=== PATIENT | female | born 1930 | race Caucasian/White ===

== ENCOUNTER 2016-02-09 22:26 | Inpatient (IN) | payer MEDICARE, BC ==
[~2016-02-09] VITALS: Ht 154.9 cm; Wt 89.9 kg
[~2016-02-09 22:26] MED LIST: ALTACE 10MG TAB10 MG PO; ALTACE 5MG5 MG PO; ALTACE2.5 MG PO; APRESOLINE 10MG10 MG PO; ARMOUR THYROID; ATIVAN 0.50.5 MG/TAB PO; AZILECT; BETIMOL 2.5 ML2.5 M1 OP; BIMATOPROST; CARBIDOPA/LEVODOPA; CEFTIN 250250 MG/TAB PO; COLACE100 MG PO; ERY-TAB250 MG PO; ESCITALOPRAM; EXELON PAT4.6 MG/24 TD; EXELON9.5 MG/21 TD; EXELON9.5 MG/24 TD; FLONASEALLERGY NS; HYDRALAZINE10 MG PO; IPRATROPIUM BROM3 M1 IH; LAMICTAL 100MG100 MG PO; LEVOXYL0.075 MG PO; LEXAPRO 10MG10 MG PO; LEXAPRO20 MG PO; LOPRESSOR 225 MG/TAB PO; LOPRESSOR 550 MG/TAB PO; LUMIGAN EYE GTTS OU; MACROBID100 MG PO; MULTIPLE VITAMI1 CAP PO; MULTIVITAMINS1 TA1 PO; MVI; NORVASC 5MG5 MG/TAB PO; PAMELOR 10MG10 MG PO; PANTOPRAZOLE40 MG PO; PEPCID 20MG TAB20 MG PO; PROBIOTIC FORMU1 CAP PO; PROTONIX 40MG T40 MG PO; REFRESH TEARS 330 ML OP; REQUIP XL12 MG PO; REQUIP XL8 MG PO; ROPINAROLE; SINEMET 25-1001 TAB PO; SINEMET 25/101 UDTAB PO; SOOTHE XP; SOOTHE XP OP; SYNTHROID0.075 MG/T PO; THYROID PO; TOPROL; TOPROL XL 50MG50 MG PO; TRAMADOL50 MG PO; TYLENOL 500MG500 MG PO; VITAMIN D3400 I1 PO; VITAMINS; ZANTAC; ZANTAC 150MG T150 MG PO; [UNRECOGNIZED DRUG - OTHER]; [UNRECOGNIZED DRUG - OTHER]
[2016-02-09 23:13] LABS: BASO % 0.3 % (0.0-2.0); EOS # 0.1 (0.0-0.7); EOS % 0.6 % (0-4.0); GRAN # 7.9 (1.4-6.5); GRAN % 84.2 % (42.2-75.2); LYMPH # 0.5 (1.2-3.4); LYMPH % 5.4 % (20.0-51.0); MEAN CELL VOLUME 91 fl (80.0-100.0); MEAN CORPUSCULAR HGB CONC 31 g/dl (33.0-37.0); MEAN PLATELET VOLUME 11.1 fl (7.4-10.4); MONO # 0.9 (0.1-0.6); MONO % 9.2 % (1.7-9.3); PLATELET COUNT 240 K/mm3 (130-400); RED BLOOD COUNT 4.04 M/mm3 (4.10-5.30); REDCELL DISTRIBUTION WIDTH-CV 14.8 % (11.5-14.5); WHITE BLOOD COUNT 9.4 K/mm3 (4.8-10.8)
[2016-02-09 23:14] LABS: HEMATOCRIT 36.9 % (37.0-47.0); HEMOGLOBIN 11.5 g/dl (12.5-16.0); MEAN CORPUSCULAR HEMOGLOBIN 28 pg (27.0-31.0)
[2016-02-09 23:18] LABS: INR 1.1 (0.8-3.0); PROTHROMBIN TIME 12.2 SECONDS (9.7-12.8)
[2016-02-09 23:21] LABS: PARTIAL THROMBOPLASTIN TIME 27.6 SECONDS (26.0-37.0)
[2016-02-09 23:27] LABS: ADJUSTED CALCIUM 9.4 mg/dL (8.4-10.2); ALANINE AMINOTRANSFERASE 23 U/L (9-52); ALBUMIN 4.6 gm/dL (3.5-5.0); ALKALINE PHOSPHATASE 88 U/L (50-136); ANION GAP 11 mmol/L (7-16); BILIRUBIN,TOTAL 0.8 mg/dL (0.0-1.0); BLOOD UREA NITROGEN 29 mg/dL (7-17); CALCIUM 9.9 mg/dL (8.4-10.2); CARBON DIOXIDE 27 mmol/L (22-30); CHLORIDE 100 mmol/L (98-107); CREATININE, serum 1.51 mg/dL (0.52-1.25); GLUCOSE 160 mg/dL (74-106); POTASSIUM 4.7 mmol/L (3.4-5.0); SODIUM 137 mmol/L (137-145); TOTAL PROTEIN 8.1 gm/dL (6.4-8.2)
[2016-02-09 23:38] LABS: B-TYPE NATRIURETIC PEPTIDE 340 pg/mL (0-450); TROPONIN-I < 0.012 ng/mL (0.000-0.034)
[2016-02-10 00:48] LABS: AMYLASE 70 U/L (30-110); LIPASE 39 U/L (23-300)
[2016-02-10] MEDS ORDERED: ZANTAC 150MG T150 MG PO (04:28)
[2016-02-10 04:53] VITALS: BP 127/55; PULSE 61; TEMP 98.5
[2016-02-10 09:31] VITALS: BP 142/43; PULSE 63; TEMP 97
[2016-02-10 13:21] LABS: ARTERIAL BLD GAS O2 SATURATION 96.6 % (92-100); ARTERIAL BLD GAS TCO2 CT 27.8; ARTERIAL BLOOD GAS HCO3 26.4 meq/L (22-26); ARTERIAL BLOOD GAS PHT 7.38 C (7.35-7.45); ARTERIAL BLOOD GAS pH 7.38 (7.35-7.45); OXYHEMOGLOBIN 95.8 %
[2016-02-10 13:22] LABS: ALLEN TEST NO; ATS? YES
[2016-02-10 13:46] VITALS: BP 140/50; PULSE 63; TEMP 98
[2016-02-10] MEDS ORDERED: IPRATROPIUM BROM3 M1 IH (15:19)
[2016-02-10] MEDS ORDERED: ALTACE 10MG TAB10 MG PO (15:19)
[2016-02-10] MEDS ORDERED: ERY-TAB250 MG PO (15:19)
[2016-02-10 16:12] LABS: PH 5 (5-8); SQUAMOUS EPITHELIAL 0-2 /hpf; URINE APPEARANCE Clear; URINE BACTERIA None Seen /hpf; URINE BILIRUBIN Negative (NEGATIVE); URINE BLOOD Negative (NEGATIVE); URINE COLOR Yellow; URINE GLUCOSE Negative (NEGATIVE); URINE KETONE Negative (NEGATIVE); URINE RBC 0-2 /hpf; URINE UROBILINOGEN Negative (NEGATIVE); URINE WBC 0-2 /hpf
[2016-02-10 18:02] VITALS: BP 154/49; PULSE 64; TEMP 97.4
[2016-02-10 21:59] VITALS: BP 144/55; PULSE 65; TEMP 99.4
[2016-02-11 02:01] VITALS: BP 164/64; PULSE 62; TEMP 98
[2016-02-11 06:14] VITALS: BP 187/64; PULSE 58; TEMP 97.8
[2016-02-11 09:49] VITALS: BP 157/49; PULSE 81; TEMP 98.8
[2016-02-11 10:01] LABS: BASO % 0.3 % (0.0-2.0); EOS # 0.1 (0.0-0.7); EOS % 1.3 % (0-4.0); GRAN # 5.2 (1.4-6.5); GRAN % 70.7 % (42.2-75.2); LYMPH # 1.3 (1.2-3.4); LYMPH % 17.5 % (20.0-51.0); MEAN CELL VOLUME 91 fl (80.0-100.0); MEAN CORPUSCULAR HGB CONC 31 g/dl (33.0-37.0); MEAN PLATELET VOLUME 11.7 fl (7.4-10.4); MONO # 0.7 (0.1-0.6); MONO % 9.8 % (1.7-9.3); PLATELET COUNT 199 K/mm3 (130-400); RED BLOOD COUNT 3.74 M/mm3 (4.10-5.30); REDCELL DISTRIBUTION WIDTH-CV 14.7 % (11.5-14.5); WHITE BLOOD COUNT 7.4 K/mm3 (4.8-10.8)
[2016-02-11 10:14] LABS: ALBUMIN 3.5 gm/dL (3.5-5.0); CALCIUM 8.4 mg/dL (8.4-10.2); CREATININE, serum 0.99 mg/dL (0.52-1.25); PHOSPHOROUS 2.8 mg/dL (2.5-4.5); POTASSIUM 4.1 mmol/L (3.4-5.0)
[2016-02-11 10:15] LABS: HEMOGLOBIN 10.4 g/dl (12.5-16.0); MEAN CORPUSCULAR HEMOGLOBIN 28 pg (27.0-31.0)
[2016-02-11 14:12] VITALS: BP 169/48; PULSE 83; TEMP 97
[2016-02-11 18:11] VITALS: BP 171/54; PULSE 82; TEMP 97.6
[2016-02-11 22:49] VITALS: BP 177/62; PULSE 88; TEMP 98.5
[2016-02-12 01:52] VITALS: BP 167/61; PULSE 78; TEMP 97.9
[2016-02-12 05:32] VITALS: BP 154/61; PULSE 73; TEMP 97.9
[2016-02-12 07:53] LABS: BASO % 0.3 % (0.0-2.0); EOS # 0.1 (0.0-0.7); EOS % 0.9 % (0-4.0); GRAN # 4.5 (1.4-6.5); GRAN % 71.8 % (42.2-75.2); LYMPH # 1.1 (1.2-3.4); LYMPH % 17.2 % (20.0-51.0); MEAN CELL VOLUME 92 fl (80.0-100.0); MEAN CORPUSCULAR HGB CONC 30 g/dl (33.0-37.0); MEAN PLATELET VOLUME 11.8 fl (7.4-10.4); MONO # 0.6 (0.1-0.6); MONO % 9.5 % (1.7-9.3); PLATELET COUNT 190 K/mm3 (130-400); RED BLOOD COUNT 3.65 M/mm3 (4.10-5.30); REDCELL DISTRIBUTION WIDTH-CV 14.6 % (11.5-14.5); WHITE BLOOD COUNT 6.3 K/mm3 (4.8-10.8)
[2016-02-12 07:54] LABS: HEMATOCRIT 33.5 % (37.0-47.0); HEMOGLOBIN 10.1 g/dl (12.5-16.0); MEAN CORPUSCULAR HEMOGLOBIN 28 pg (27.0-31.0)
[2016-02-12 08:09] LABS: ALBUMIN 3.3 gm/dL (3.5-5.0); BILIRUBIN,TOTAL 0.6 mg/dL (0.0-1.0); CALCIUM 8.4 mg/dL (8.4-10.2); CREATININE, serum 0.88 mg/dL (0.52-1.25); MAGNESIUM 2.1 mg/dL (1.6-2.3); POTASSIUM 3.6 mmol/L (3.4-5.0); TOTAL PROTEIN 6.2 gm/dL (6.4-8.2)
[2016-02-12 10:14] VITALS: BP 169/54; PULSE 81; TEMP 98.5
[2016-02-12 13:32] VITALS: BP 162/47; PULSE 84; TEMP 98
[2016-02-12 18:29] VITALS: BP 180/57; PULSE 86; TEMP 99.6
[2016-02-13 05:00] VITALS: BP 171/61; PULSE 77; TEMP 98.7
[2016-02-13 09:35] VITALS: BP 174/65; PULSE 81; TEMP 98.5
[2016-02-13] MEDS ORDERED: ROXANOL 20MG20 MG/ML SL (12:17)
[2016-02-13] MEDS ORDERED: TYLENOL SU325 MG/SUP RC (12:18)
[2016-02-13] MEDS ORDERED: ATIVAN 1MG T1 MG/TAB PO (12:20)
[2016-02-13 12:47] VITALS: BP 174/65; PULSE 81; TEMP 98.5
== END 2016-02-13 13:30 | disposition hospice, home (50) | DRG 389 ==
LOC: COL.ER 22:26 → SURG 02-10 01:34
PROVIDERS: Emergency Medicine; Internal Medicine Hospice and Palliative Medicine; Surgery
PROC: 02HV33Z Insertion of Infusion Device into Superior Vena Cava, Percutaneous Approach (ICD-10-PCS; principal; 2016-02-10)
DX: K56.60 Unspecified intestinal obstruction (principal); N17.9 Acute kidney failure, unspecified; Z51.5 Encounter for palliative care; I12.9 Hypertensive chronic kidney disease with stage 1 through stage 4 chronic kidney disease, or unspecified chronic kidney disease; N18.9 Chronic kidney disease, unspecified; G20 Parkinson's disease; F02.80 Dementia in other diseases classified elsewhere, unspecified severity, without behavioral disturbance, psychotic disturbance, mood disturbance, and anxiety
CPT/HCPCS: 99222-AI; 99233-AI; 99239; C1751; C1894; J0360; J1644; J7030; Q9967

== ENCOUNTER → 2016-03-09 | Outpatient (REF) ==
[~2016-03-09] MED LIST changes: +ATIVAN 1MG T1 MG/TAB PO; +ROXANOL 20MG20 MG/ML SL; +TYLENOL SU325 MG/SUP RC
== END ==
LOC: ZAIV 03-08 06:10
DX: Z45.2 Encounter for adjustment and management of vascular access device (principal)